=== PATIENT | male | born 1955 | race Caucasian/White ===

== ENCOUNTER → 2018-04-29 | Outpatient (CLI) | payer OTHER ==
[2018-04-29 14:26] LABS: ADD MAN DIFF? NO
[2018-04-29 14:34] LABS: BASO # 0.1 x10^3/uL (0.0-0.2); BASO % 1 % (0-3); EOS # 0.3 x10^3/uL (0.0-0.7); EOS % 2 % (0-3); HEMATOCRIT 45.6 % (39.0-53.0); HEMOGLOBIN 15.6 g/dL (13.0-17.5); LYMPH # 1.8 x10^3/uL (1.0-4.8); LYMPH % 15 % (24-48); MEAN CORPUSCULAR HEMOGLOBIN 30 pg (25-35); MEAN CORPUSCULAR HGB CONC 34 g/dL (31-37); MEAN CORPUSCULAR VOLUME 89 fL (79-100); MONO # 1.5 x10^3/uL (0.0-1.1); MONO % 12 % (0-9); NEUT # 8.7 x10^3uL (1.8-7.7); NEUT % 70 % (31-73); PLATELET COUNT 390 x10^3/uL (140-400); RED BLOOD COUNT 5.15 x10^6/uL (4.30-5.70); RED CELL DISTRIBUTION WIDTH 13.4 % (11.5-14.5); WHITE BLOOD COUNT 12.4 x10^3/uL (4.0-11.0)
[2018-04-29 14:42] LABS: PARTIAL THROMBOPLASTIN TIME 33 SEC (24-38); PROTHROMBIN TIME PATIENT 13.1 SEC (11.7-14.0)
[2018-04-29 14:46] LABS: ALBUMIN 3.9 g/dL (3.4-5.0); ANION GAP 9 (6-14); BLOOD UREA NITROGEN 13 mg/dL (8-26); CALCIUM 9.6 mg/dL (8.5-10.1); CARBON DIOXIDE 27 mmol/L (21-32); CHLORIDE 101 mmol/L (98-107); CREATININE 0.9 mg/dL (0.7-1.3); GLUCOSE 90 mg/dL (70-99); POTASSIUM 3.5 mmol/L (3.5-5.1); SODIUM 137 mmol/L (136-145)
[2018-04-29 15:00] LABS: BILIRUBIN,URINE NEGATIVE (NEG); CLARITY,URINE CLEAR; COLOR,URINE YELLOW; GLUCOSE,URINE NEGATIVE (NEG); NITRITE,URINE NEGATIVE (NEG); PROTEIN,URINE NEGATIVE (NEG-TRACE); UROBILINOGEN,URINE 0.2 mg/dL (0.2 mg/dL)
[2018-04-29 15:07] LABS: BACTERIA,URINE 0 /HPF (0-FEW); RBC,URINE 0 /HPF (0-2); SQUAMOUS EPITHELIAL CELL,UR OCC /LPF
[2018-04-29 15:26] LABS: PLT ESTIMATE ADEQUATE (ADEQUATE)
[2018-04-29 16:01] LABS: SEDIMENTATION RATE 44 (0-15)
[2018-04-30 06:23] LABS: MRSA BY PCR Negative (Negative)
== END | disposition home or self-care (01) ==
LOC: SURGPAT 13:03
DX: Z01.818 Encounter for other preprocedural examination (principal)
CPT/HCPCS: 36415; 71046; 80048; 81001; 82040; 85025; 85610; 85651; 85730; 87086; 87641; 93005

== ENCOUNTER 2018-05-06 11:23 | Inpatient (IN) | payer OTHER ==
[~2018-05-06 11:23] MED LIST: LIDOCAINE 1% PF 2 ML VIAL. ID; MORPHINE SULFATE 2 MG/ML DISP.SYRIN. IV; ONDANSETRON PF 4 MG/2 ML VIAL. IV; PROCHLORPERAZINE 10 MG/2 ML VIAL. IV; TRANEXAMIC ACID 1,000 MG in IV NS 50ML -- 2ND BAG INJ; fentaNYL PF VIAL 100 MCG/2 ML VIAL IV
[2018-05-06] MEDS ORDERED: ONDANSETRON PF 4 MG/2 ML VIAL. (12:24)
[2018-05-06] MEDS ORDERED: LIDOCAINE 2% PF Vial for OR 5 ML VIAL. (12:24)
[2018-05-06] MEDS ORDERED: PROPOFOL 20 ML IV (12:24)
[2018-05-06] MEDS ORDERED: DEXAMETHASONE SOD PHOS 20 MG/5 ML VIAL. (12:24)
[2018-05-06] MEDS ORDERED: FAMOTIDINE 20 MG/2 ML VIAL (12:24)
[2018-05-06] MEDS ORDERED: ROCURONIUM 50 MG/5 ML VIAL. (12:25)
[2018-05-06] MEDS ORDERED: fentaNYL PF VIAL 100 MCG/2 ML VIAL ×2 (12:25→13:33)
[2018-05-06] MEDS ORDERED: MIDAZOLAM HCL/PF 2 MG/2 ML VIAL. (12:25)
[2018-05-06] MEDS: IV RINGERS,LACTATED 1000ML 1,000 ML IV (12:41)
[2018-05-06 12:46] LABS: PARTIAL THROMBOPLASTIN TIME 31 SEC (24-38)
[2018-05-06] MEDS: CELECOXIB 100 MG CAPSULE. PO (12:46)
[2018-05-06] MEDS: HYDROcodone/APAP 7.5/325MG 1 TAB TABLET PO (12:47)
[2018-05-06] MEDS: CLINDAMYCIN 900MG PREMIX 50 ML IV ×2 (13:02→18:40)
[2018-05-06] MEDS: TRANEXAMIC ACID 1,000 MG in IV NS 50ML -- 1ST BAG INJ (13:08)
[2018-05-06] MEDS: MORPHINE SULFATE 5 MG, KETOROLAC 30 MG, ROPIVacaine 0.5% PF 60 ML, EPINEPHrine 0.5 MG i... INT ART (13:28)
[2018-05-06] MEDS ORDERED: ePHEDrine PF IN SALINE 50 MG/5 ML DISP.SYRIN IV (14:04)
[2018-05-06] MEDS ORDERED: NEOSTIGMINE METHYLSULFATE 5 MG/5 ML SYRINGE. (14:26)
[2018-05-06] MEDS ORDERED: GLYCOPYRROLATE 1 MG/5 ML VIAL. (14:30)
[2018-05-06] MEDS: IV DEXTROSE 5 %-0.45 % NACL 1,000 ML IV ×2 (16:06→20:04)
[2018-05-06] MEDS ORDERED: ZOLPIDEM 5 MG TABLET. PO (16:15)
[2018-05-06] MEDS ORDERED: DEXTROSE 50% 25 GM / 50ML DISP.SYRIN. IV (16:15)
[2018-05-06] MEDS ORDERED: MORPHINE SULFATE 2 MG/ML DISP.SYRIN. IV (16:15)
[2018-05-06] MEDS ORDERED: HYDROcodone/APAP 7.5/325MG 1 TAB TABLET PO (16:15)
[2018-05-06] MEDS ORDERED: diphenhydrAMINE 50 MG/ML VIAL IV (16:15)
[2018-05-06] MEDS ORDERED: fentaNYL PF VIAL 100 MCG/2 ML VIAL IV ×2 (16:15)
[2018-05-06] MEDS ORDERED: oxyCODONE/APAP 7.5/325 1 TAB TABLET PO (16:15)
[2018-05-06] MEDS ORDERED: ACETAMINOPHEN 325 MG TABLET. PO (16:15)
[2018-05-06] MEDS ORDERED: PROCHLORPERAZINE 10 MG/2 ML VIAL. IV (16:15)
[2018-05-06] MEDS ORDERED: traMADol 50 MG TABLET PO ×2 (16:15)
[2018-05-06] MEDS ORDERED: HYDROcodone/APAP 10/325 1 TAB TABLET PO (16:15)
[2018-05-06] MEDS ORDERED: CALCIUM CARBONATE 500 MG TAB.CHEW PO (16:15)
[2018-05-06] MEDS ORDERED: 0.9 % SODIUM CHLORIDE 10 ML DISP.SYRIN. IV (16:15)
[2018-05-06] MEDS ORDERED: oxyCODONE/APAP 5/325 1 TAB TABLET PO (16:15)
[2018-05-06] MEDS: FERROUS SULFATE 325 MG TABLET. PO (18:39)
[2018-05-06] MEDS: APIXABAN 2.5 MG TABLET. PO (21:47)
[2018-05-06] MEDS: SIMVASTATIN 40 MG TABLET. PO (21:47)
[2018-05-07] MEDS: CLINDAMYCIN 900MG PREMIX 50 ML IV ×2 (00:35→06:30)
[2018-05-07] MEDS ORDERED: MAGNESIUM HYDROXIDE 2,400 MG/30 ML ORAL.SUSP. PO (06:00)
[2018-05-07] MEDS: hydroCHLOROthiazide 12.5 MG CAPSULE PO (06:54)
[2018-05-07] MEDS: LISINOPRIL 20 MG TABLET PO (06:54)
[2018-05-07] MEDS: FERROUS SULFATE 325 MG TABLET. PO (08:25)
[2018-05-07] MEDS: CELECOXIB 100 MG CAPSULE. PO (08:25)
[2018-05-07] MEDS: SENNOSIDES/DOCUSATE 8.6/50MG TABLET. PO (08:25)
[2018-05-07] MEDS: MULTIVITAMIN with MINERAL TABLET. PO (08:25)
[2018-05-07] MEDS: APIXABAN 2.5 MG TABLET. PO (08:25)
[2018-05-07 10:31] LABS: HEMATOCRIT 42.2 % (39.0-53.0); HEMOGLOBIN 14.4 g/dL (13.0-17.5); MEAN CORPUSCULAR HGB CONC 34 g/dL (31-37)
[2018-05-07] MEDS ORDERED: ANTI-COAG MONITOR BY PHARMACY. MC ×2 (12:00→13:45)
[2018-05-07] MEDS ORDERED: BISACODYL 10 MG SUPP.RECT. PR (16:00)
== END 2018-05-07 14:15 | disposition home or self-care (01) | DRG 468 ==
LOC: OPSVCIP 11:23 → 4 SOUTHEST 15:35
PROC: 0SRS03Z Replacement of Left Hip Joint, Femoral Surface with Ceramic Synthetic Substitute, Open Approach (ICD-10-PCS; principal; 2018-05-06 12:53)
PROC: 0SPB09Z Removal of Liner from Left Hip Joint, Open Approach (ICD-10-PCS; 2018-05-06 12:53)
PROC: 0SUE09Z Supplement Left Hip Joint, Acetabular Surface with Liner, Open Approach (ICD-10-PCS; 2018-05-06 12:53)
PROC: 0SPS0JZ Removal of Synthetic Substitute from Left Hip Joint, Femoral Surface, Open Approach (ICD-10-PCS; 2018-05-06 12:53)
DX: T84.061A Wear of articular bearing surface of internal prosthetic left hip joint, initial encounter (principal); Y83.8 Other surgical procedures as the cause of abnormal reaction of the patient, or of later complication, without mention of misadventure at the time of the procedure; Y92.89 Other specified places as the place of occurrence of the external cause; T84.021A Dislocation of internal left hip prosthesis, initial encounter
CPT/HCPCS: 36415; 85014; 85018; 85610; 85730; 86850; 86900; 86901; 87071; 87075; 88112; 97116-GP; 97150-GP; 97165-GO; 97530-GP; A7015; J0171; J1100; J1885; J2001; J2250; J2270; J2405; J2704; J2710; J2795; J3010; J3490; J7030; J7120; S0028

== ENCOUNTER 2019-04-14 10:15 | Emergency (ER) | payer OTHER, MEDICARE ==
[~2019-04-14] VITALS: Ht 188 cm; Wt 90.7 kg
[~2019-04-14 10:15] MED LIST changes: -LIDOCAINE 1% PF 2 ML VIAL. ID; +LISI1TAB5 PO; -MORPHINE SULFATE 2 MG/ML DISP.SYRIN. IV; -ONDANSETRON PF 4 MG/2 ML VIAL. IV; -PROCHLORPERAZINE 10 MG/2 ML VIAL. IV; +SIMV40TA3 PO; -TRANEXAMIC ACID 1,000 MG in IV NS 50ML -- 2ND BAG INJ; -fentaNYL PF VIAL 100 MCG/2 ML VIAL IV
--- NOTE | 2019-04-14 10:39 | PHYS DOC ---
Past Medical History Past Medical History: High Cholesterol, Hypertension Past Surgical History: Hip Replacement Alcohol Use: None Adult General Chief Complaint Chief Complaint: HIP PAIN HPI HPI Patient is a 63-year-old male who presents to the emergency department for evaluation. Patient states he was on a roof, cleaning gutters, when he twisted his left leg wrong, and felt his left hip dislocated. He has a history of a prior left total hip arthroplasty, as well as a revision to the surgery with hardware about 3 years. He did not improve, or suffer any other traumatic injury. He denies any numbness or weakness. He received 100 g By EMS. Movement and palpation of his left hip to worsen his pain. There are no alleviating factors to his symptoms otherwise. Review of Systems Review of Systems Respiratory: Denies cough or shortness of breath [] GI: Denies abdominal pain, nausea, vomiting, bloody stools or diarrhea [] Musculoskeletal: Denies back pain or joint pain, except in the left hip [] Integument: Denies rash or skin lesions [] Neurologic: Denies headache, focal weakness or sensory changes [] Current Medications Current Medications Current Medications Medications (Trade) Dose Ordered Sig/Micah Start Time Stop Time Status Last Admin Dose Admin Fentanyl Citrate (Fentanyl 2ml Vial) 50 mcg 1X ONCE 04/14/19 10:45 04/14/19 10:46 DC 04/14/19 10:40 50 MCG Midazolam HCl (Versed) 2 mg 1X ONCE 04/14/19 11:45 04/14/19 11:48 DC 04/14/19 11:45 2 MG Propofol (Diprivan) 100 mg 1X ONCE 04/14/19 11:45 04/14/19 11:48 DC 04/14/19 11:46 100 MG Sodium Chloride 1,000 ml @ 1,000 mls/hr 1X ONCE 04/14/19 10:45 04/14/19 11:44 DC 04/14/19 10:40 1,000 MLS/HR Allergies Allergies Allergies Coded Allergies Type Severity Reaction Last Updated Verified Penicillins Adverse Reaction Intermediate Palpitations 05/06/18 Yes Physical Exam Physical Exam PHYSICAL EXAM: CONSTITUTIONAL: Well developed, well nourished HEAD: normocephalic, atraumatic EENT: PERRL, EOMI. Conjunctivae normal color, sclerae non-icteric; moist mucous membranes. NECK: Supple, non-tender; no meningismus. LUNGS: Lungs CTA, breathing even and unlabored. Normal air movement. HEART: Regular rate and rhythm, no murmur CHEST: No deformity; non-tender ABDOMEN: The abdomen is soft, and non-tender, no masses or bruits. EXTREM: The patient is holding the left hip and knee flexed, and is laying on his right side. There is tenderness to palpation of his left hip area, with a well-healed incision present. Any movement of the left hip is painful to the patient. There is a strong distal dorsalis pedis pulse, as well as distal sensation and motor function on the left leg are intact. The remainder the extremities are unremarkable, with Normal ROM; no deformity, no calf tenderness. Normal pulses palpable in all extremities. There is no pedal edema. SKIN: No rash; no diaphoresis NEURO: Alert; normal speech and cognition; CN's grossly intact; strength grossly intact without focal deficit. BACK: No CVA TTP. Current Patient Data Vital Signs Vital Signs Date Time Temp Pulse Resp B/P (MAP) Pulse Ox O2 Delivery O2 Flow Rate FiO2 04/14/19 11:45 62 16 105/55 (72) 96 Room Air 04/14/19 11:35 2.0 04/14/19 11:10 97.4 96.6 96.6 EKG EKG [] Radiology/Procedures Radiology/Procedures [PROCEDURE: HIP LEFT 2 VIEW 2 view left hip study Clinical indications: Left hip pain. Suspected dislocation. FINDINGS: Total left hip arthroplasty is evident. There is superior lateral dislocation of the femoral head prosthesis out of the acetabular prosthesis. No acute fracture or lytic process evident. IMPRESSION: Dislocation of left hip prosthesis. ] PROCEDURE: HIP LEFT 2 VIEW Examination: 2 views of the left hip HISTORY: History of postreduction. COMPARISON: 04/14/2019. Findings/ impression: Postreduction changes of the left hip prosthesis with the left hip total arthroplasty changes in normal alignment. Course & Med Decision Making Course & Med Decision Making Pertinent Imaging studies reviewed. (See chart for details) [] PROCEDURE NOTE: Closed hip reduction with moderate sedation: informed consent was obtained from the patient, and appropriate monitoring time and she refused. The patient was given initially 1 mg of Versed and 70 mg of propofol, but the patient did have some persistent muscle spasming, which made reduction on the initial attempt difficult. He was subsequently given an additional 30 mg of propofol, and another 1 mg of Versed, with appropriate relaxation, which facilitated successful reduction of the patient's hip dislocation clinically. An x-ray will be obtained. PMS intact post reduction. The patient did experience some airway obstruction by his tongue, requiring brief your thrust, but did not have hypoxia below 88%. End-tidal CO2 was monitored, and did not rise. The patient has recovered successfully, and will continue to be monitored in the emergency department. 11:25 AM: I have paged the patient's orthopedist, to discuss the case with the patient's physician. 12:40 PM: The patient's condition remained stable. He has recovered from his sedation unremarkably. He is able to ambulate without significant difficulty, and only mild residual soreness. Discussed with Dr. Molina,, on-call for the patient's orthopedist, who agreed with management of the patient. I discussed limiting patient the patient, the need for orthopedic follow-up and return precautions. Dragon Disclaimer Dragon Disclaimer This electronic medical record was generated, in whole or in part, using a voice recognition dictation system. Departure Departure Impression: Primary Impression: Hip dislocation, left Disposition: HOME, SELF-CARE Condition: STABLE Referrals: NIKOS NIXON Jr, MD (PCP) NERY MONTEIRO MD Patient Instructions: Hip Dislocation ARA DIGGS MD Apr 14, 2019 10:39
[2019-04-14] MEDS ORDERED: PROPOFOL 20 ML IV ONE (10:42)
[2019-04-14] MEDS ORDERED: ETOMIDATE 20 MG/10 ML VIAL. IV ONE (10:42)
[2019-04-14] MEDS ORDERED: MIDAZOLAM HCL/PF 5 MG/5 ML VIAL. ONE (10:43)
[2019-04-14] MEDS ORDERED: IV NORMAL SALINE 1000ML BAG 1,000 ML IV ONE (10:45)
[2019-04-14] MEDS ORDERED: fentaNYL PF VIAL 100 MCG/2 ML VIAL IV ONE (10:45)
--- NOTE | 2019-04-14 11:04 | RAD ---
2 view left hip study Clinical indications: Left hip pain. Suspected dislocation. FINDINGS: Total left hip arthroplasty is evident. There is superior lateral dislocation of the femoral head prosthesis out of the acetabular prosthesis. No acute fracture or lytic process evident. IMPRESSION: Dislocation of left hip prosthesis. Electronically signed by: Tru Chaves MD (04/14/2019 11:01 AM) [id number]
[2019-04-14 11:10] VITALS: BP 130/70
[2019-04-14] MEDS ORDERED: PROPOFOL 10 MG/ML (20ML) VIAL. IV ONE (11:45)
[2019-04-14] MEDS ORDERED: MIDAZOLAM HCL/PF 5 MG/5 ML VIAL. IV ONE (11:45)
--- NOTE | 2019-04-14 12:00 | RAD ---
Examination: 2 views of the left hip HISTORY: History of postreduction. COMPARISON: 04/14/2019. Findings/ impression: Postreduction changes of the left hip prosthesis with the left hip total arthroplasty changes in normal alignment. Electronically signed by: Eusebio Zaman MD (04/14/2019 11:57 AM) [place] [id number]
[2019-04-14 12:54] VITALS: BP 133/71
== END 2019-04-14 12:53 | disposition home or self-care (01) ==
LOC: ER 10:15
DX: T84.021A Dislocation of internal left hip prosthesis, initial encounter (principal); E78.00 Pure hypercholesterolemia, unspecified; I10 Essential (primary) hypertension; Z96.642 Presence of left artificial hip joint; Z88.0 Allergy status to penicillin; W18.39XA Other fall on same level, initial encounter; Y93.H9 Activity, other involving exterior property and land maintenance, building and construction; Y92.89 Other specified places as the place of occurrence of the external cause; Y99.8 Other external cause status
CPT/HCPCS: 27265; 73502; 96374; 99285; J2250; J2704; J3010; J7030; 99284

== ENCOUNTER → 2020-02-09 | Day surgery (SDC) | payer MEDICARE ==
[~2020-02-09] VITALS: Ht 188 cm; Wt 113.6 kg
[~2020-02-09] MED LIST changes: +HYDROmorphone 2 MG/ML VIAL IV ONE; +HYDROmorphone 2 MG/ML VIAL IV PRN; +HYDROmorphone 2 MG/ML VIAL ONE; +IV RINGERS,LACTATED 1000ML 1,000 ML IV ONE; +IV RINGERS,LACTATED 1000ML 1,000 ML IV SCH; +KETOROLAC 30 MG/ML VIAL. ONE; +LISI1TAB19 PO; -LISI1TAB5 PO; +MORPHINE SULFATE 2 MG/ML VIAL. IV PRN; +ONDANSETRON PF 4 MG/2 ML VIAL. IV PRN; +ONDANSETRON PF 4 MG/2 ML VIAL. IVP ONE; +PROCHLORPERAZINE 10 MG/2 ML VIAL. IV PRN; +PROPOFOL 20 ML IV ONE; +SIMV40TA18 PO; -SIMV40TA3 PO; +SUCCINYLCHOLINE 200 MG/10 ML VIAL. ONE; +fentaNYL PF VIAL 100 MCG/2 ML VIAL IV PRN
--- NOTE | 2020-02-09 13:18 | PHYS DOC ---
Past Medical History Past Medical History: High Cholesterol, Hypertension Past Surgical History: Hip Replacement Additional Past Surgical Histo: LEFT HIP REPLACEMENT Smoking Status: Current Every Day Smoker Alcohol Use: None Drug Use: None Adult General Chief Complaint Chief Complaint: HIP PAIN HPI HPI Patient is a 64 year old male presenting to the ED with a chief complaint of left hip dislocation. Patient states that he was out in his yard when he felt his left hip dislocated. Patient states that he has a hip replacement in his left hip. His orthopedic surgeon is Dr. Soni. Patient states that this is happened in the past. Patient denies any other injury. Patient does state that he is an active smoker. Review of Systems Review of Systems Patient complains of pain to his left hip. Patient denies fever, chills, nausea, vomiting, diarrhea, dysuria, chest pain, abdominal pain, shortness of breath. All other systems were reviewed and found to be within normal limits, except as documented in this note. Current Medications Current Medications Current Medications Medications (Trade) Dose Ordered Sig/Micah Start Time Stop Time Status Last Admin Dose Admin Fentanyl Citrate (Fentanyl 2ml Vial) 50 mcg PRN Q5MIN PRN 02/09/20 14:45 02/10/20 14:44 Hydromorphone HCl (Dilaudid) 0.5 mg PRN Q10MIN PRN 02/09/20 14:45 02/10/20 14:44 Ketorolac Tromethamine (Toradol 30mg Vial) 30 mg STK-MED ONCE 02/09/20 15:14 02/09/20 15:15 DC Lorazepam (Ativan Inj) 1 mg 1X ONCE 02/09/20 13:15 02/09/20 13:17 DC 02/09/20 13:28 1 MG Morphine Sulfate (Morphine Sulfate) 1 mg PRN Q10MIN PRN 02/09/20 14:45 02/10/20 14:44 Ondansetron HCl (Zofran) 4 mg PRN Q6HRS PRN 02/09/20 14:45 02/10/20 14:44 Prochlorperazine Edisylate (Compazine) 5 mg PACU PRN PRN 02/09/20 14:45 02/10/20 14:44 Propofol 20 ml @ As Directed STK-MED ONCE 02/09/20 14:57 02/09/20 14:58 DC Ringer's Solution 1,000 ml @ 30 mls/hr Q24H 02/09/20 14:37 02/10/20 02:36 DC Allergies Allergies Allergies Coded Allergies Type Severity Reaction Last Updated Verified Penicillins Adverse Reaction Intermediate Palpitations 05/06/18 Yes Physical Exam Physical Exam Constitutional: Well developed, well nourished, in mild distress HENT: Normocephalic, atraumatic Eyes: PERRLA, EOMI Neck: Normal range of motion Cardiovascular:Heart rate regular rhythm, no murmur [] Lungs & Thorax: Lungs clear to auscultation bilaterally Extremities: Obvious deformity to the left hip. Neurovascular intact distally. Neurologic: Alert and oriented X 3 Current Patient Data Vital Signs Vital Signs Date Time Temp Pulse Resp B/P (MAP) Pulse Ox O2 Delivery O2 Flow Rate FiO2 02/09/20 15:10 72 20 167/56 97 Nasal Cannula 4.0 02/09/20 15:10 97.4 97.4 Lab Values Laboratory Tests Test 02/09/20 13:10 White Blood Count 9.6 x10^3/uL (4.0-11.0) Red Blood Count 5.12 x10^6/uL (4.30-5.70) Hemoglobin 15.0 g/dL (13.0-17.5) Hematocrit 45.1 % (39.0-53.0) Mean Corpuscular Volume 88 fL (79-100) Mean Corpuscular Hemoglobin 29 pg (25-35) Mean Corpuscular Hemoglobin Concent 33 g/dL (31-37) Red Cell Distribution Width 13.5 % (11.5-14.5) Platelet Count 262 x10^3/uL (140-400) Neutrophils (%) (Auto) 63 % (31-73) Lymphocytes (%) (Auto) 21 % (24-48) L Monocytes (%) (Auto) 12 % (0-9) H Eosinophils (%) (Auto) 2 % (0-3) Basophils (%) (Auto) 1 % (0-3) Neutrophils # (Auto) 6.0 x10^3/uL (1.8-7.7) Lymphocytes # (Auto) 2.1 x10^3/uL (1.0-4.8) Monocytes # (Auto) 1.2 x10^3/uL (0.0-1.1) H Eosinophils # (Auto) 0.2 x10^3/uL (0.0-0.7) Basophils # (Auto) 0.1 x10^3/uL (0.0-0.2) Prothrombin Time 12.9 SEC (11.7-14.0) Prothrombin Time INR 1.0 (0.8-1.1) Sodium Level 137 mmol/L (136-145) Potassium Level 3.6 mmol/L (3.5-5.1) Chloride Level 101 mmol/L (98-107) Carbon Dioxide Level 23 mmol/L (21-32) Anion Gap 13 (6-14) Blood Urea Nitrogen 14 mg/dL (8-26) Creatinine 1.2 mg/dL (0.7-1.3) Estimated GFR (Cockcroft-Gault) 60.6 BUN/Creatinine Ratio 12 (6-20) Glucose Level 117 mg/dL (70-99) H Calcium Level 9.3 mg/dL (8.5-10.1) Total Bilirubin 0.4 mg/dL (0.2-1.0) Aspartate Amino Transferase (AST) 20 U/L (15-37) Alanine Aminotransferase (ALT) 26 U/L (16-63) Alkaline Phosphatase 46 U/L (46-116) Total Protein 7.5 g/dL (6.4-8.2) Albumin 3.7 g/dL (3.4-5.0) Albumin/Globulin Ratio 1.0 (1.0-1.7) Laboratory Tests 02/09/20 13:10 Laboratory Tests 02/09/20 13:10 EKG EKG [] Radiology/Procedures Radiology/Procedures [] Course & Med Decision Making Course & Med Decision Making Pertinent Labs and Imaging studies reviewed. (See chart for details) Ordered x-ray of the left hip. Ordered pain medication, nausea medicine and Ativan 1 mg IV. X-ray of the left hip shows a superior dislocation. Patient was given 50mg propofol. Unable to reduce the dislocation. Discussed case with Dr. Senior who says that he will take the patient to the OR for closed reduction. Discussed results and plan of care with patient. Dragon Disclaimer Dragon Disclaimer This electronic medical record was generated, in whole or in part, using a voice recognition dictation system. Departure Departure Impression: Primary Impression: Hip dislocation, left Disposition: 01 HOME, SELF-CARE Condition: IMPROVED Referrals: NIKOS NIXON Jr, MD (PCP) NERY SONI MD in 1-2 days Patient Instructions: Closed Reduction for Artificial Hip Dislocation, Hip Dislocation JOSEFA HARVEY DO Feb 09, 2020 13:17
[2020-02-09 13:25] LABS: BASO # 0.1 x10^3/uL (0.0-0.2); BASO % 1 % (0-3); EOS # 0.2 x10^3/uL (0.0-0.7); EOS % 2 % (0-3); HEMATOCRIT 45.1 % (39.0-53.0); LYMPH # 2.1 x10^3/uL (1.0-4.8); LYMPH % 21 % (24-48); MEAN CORPUSCULAR HEMOGLOBIN 29 pg (25-35); MEAN CORPUSCULAR HGB CONC 33 g/dL (31-37); MEAN CORPUSCULAR VOLUME 88 fL (79-100); MONO # 1.2 x10^3/uL (0.0-1.1); MONO % 12 % (0-9); NEUT % 63 % (31-73); PLATELET COUNT 262 x10^3/uL (140-400); RED BLOOD COUNT 5.12 x10^6/uL (4.30-5.70); RED CELL DISTRIBUTION WIDTH 13.5 % (11.5-14.5); WHITE BLOOD COUNT 9.6 x10^3/uL (4.0-11.0)
--- NOTE | 2020-02-09 13:34 | RAD ---
2 view study of the left hip Clinical indications: Dislocation. FINDINGS: There is superior lateral dislocation of the left femoral head prosthesis out of the acetabular prosthesis. No acute fracture is seen. No lytic process is evident. IMPRESSION: Dislocation of left hip prosthesis. Electronically signed by: Tru Chaves MD (02/09/2020 1:31 PM) [id number]
[2020-02-09 13:35] LABS: CALCIUM 9.3 mg/dL (8.5-10.1); CREATININE 1.2 mg/dL (0.7-1.3); GFR 60.6; POTASSIUM 3.6 mmol/L (3.5-5.1)
[2020-02-09 13:38] LABS: PROTHROMBIN TIME PATIENT 12.9 SEC (11.7-14.0)
[2020-02-09 13:40] LABS: ALBUMIN 3.7 g/dL (3.4-5.0); TOTAL BILIRUBIN 0.4 mg/dL (0.2-1.0); TOTAL PROTEIN 7.5 g/dL (6.4-8.2)
[2020-02-09 13:54] VITALS: BP 125/63
--- NOTE | 2020-02-09 15:15 | NUR ---
1515-DR MONTEIRO AT BEDSIDE. PROCEDURE START AT 1517. DR MONETIRO RELOCATED PT'S HIP DISLOCATION UNDER MAC ANESTHESIA. PROCEDURE ENDED AT 1531.
--- NOTE | 2020-02-09 16:11 | RAD ---
Left hip single view COMPARISON: Earlier same day left hip x-rays FINDINGS: AP portable view of the left hip shows interval reduction of the left hip dislocation status post total hip arthroplasty. No fracture or aggressive osseous lesions. IMPRESSION: Single view of the left hip suggests interval successful reduction of the left hip dislocation evident previously. Electronically signed by: Saran Nam MD (02/09/2020 4:08 PM) [id number]
[2020-02-09 16:20] VITALS: BP 106/29
--- NOTE | 2020-02-09 16:31 | DISCH ---
DISCHARGE INSTRUCTIONS Condition on Discharge Condition on Discharge: Stable Activity After Discharge Activity Instructions for Disc: Activity as tolerated, Other, see below (use knee immobilizer for transfers sitting to standing or getting in and out of bed until follow-up in 3 weeks) Bathing Instructions: Shower-keep dressing dry Lifting Instructions after Dis: No heavy lifting, No pulling or pushing, Add. restrict see below (avoid bending at the waist beyond 90) Exercise Instruction after Dis: Progress as tolerated Driving Instructions after Dis: Do not drive Weight Bearing Status after Di: As tolerated (use knee immobilizer for walking in the first week) Diet after Discharge Diet after Discharge: Regular Wound Incision Care Wound/Incision Care: Ice to area for comfort Contacting the DRDanie after DC Call your doctor for: Concerns you may have Follow-Up Follow up with: Dr. Soni 3 weeks NERY SONI MD Feb 09, 2020 16:31
--- NOTE | 2020-02-09 17:35 | PDOC4 ---
Operative Note Operative Note Date of surgery: 02/09/2020 Preoperative diagnosis: Dislocated left total hip arthroplasty Postoperative diagnosis: Same Operative procedure: Closed reduction left total hip arthroplasty dislocation Surgeon: Nae Anesthesia: Deep sedation provided by anesthesia Complications: None Estimated blood loss: None Operative indications: Please see my dictated orthopedic emergency Department consultation of today for detail operative indications Operative text: Patient was identified procedure verified patient placed in the supine position on the recovery room cart and conscious sedation was initially provided by anesthesia with propofol and due to the difficulty of the reduction added some muscle relaxant as well and after sufficient traction countertraction was obtained the left hip was relocated and verified with a adequate reduction with an AP view of the pelvis and the hip components were noted to remain well fixed and aligned. He was placed in a knee immobilizer and was discharged after satisfactory recovery and ability to ambulate on his own and was given specific instructions on his hip precautions use of the knee immobilizer NERY MONTEIRO MD Feb 09, 2020 17:35
--- NOTE | 2020-02-09 22:15 | CONS ---
DATE OF CONSULTATION: 02/09/2020 EMERGENCY DEPARTMENT CONSULTATION REQUESTING PHYSICIAN: Kathy Arguelles DO. REASON FOR CONSULTATION: Left hip dislocation. HISTORY: The patient is a 64-year-old male known to me from previous treatment of left hip instability. He had remotely had a left total hip arthroplasty done by Dr. Headley and has undergone a few different closed reduction procedures in the past. He was out in his yard today and felt his left hip dislocate as he bent over. He denied any fall or loss of consciousness or other injury but had the sudden onset of pain, inability to ambulate and was evaluated in the Emergency Department and failed closed reduction under conscious sedation. PAST MEDICAL HISTORY: Significant for hypertension and hypercholesterolemia. PAST SURGICAL HISTORY: Left total hip arthroplasty. SOCIAL HISTORY: Denies alcohol or drug use. He does smoke every day, however. FAMILY HISTORY: Noncontributory. ALLERGIES: HE HAS AN ALLERGY TO PENICILLINS WHICH WAS APPARENTLY PALPITATIONS. MEDICATION LIST: Reviewed. REVIEW OF SYSTEMS: Denies any chest pain, shortness of breath, recent fever, chills, nausea, vomiting or other constitutional symptoms. PHYSICAL EXAMINATION: VITAL SIGNS: Temperature 97.4, pulse 70, respirations 13-16 range, blood pressure 125/63, 98% saturation on room air. HEENT: Atraumatic, normocephalic. HEART: Regular rate and rhythm. LUNGS: Clear to auscultation bilaterally. ABDOMEN: Benign. EXTREMITIES: Examination of the left hip reveals shortened internally rotated left hip, painful to any motion, and he has significant muscle spasm around the hip girdle area. He has a well-healed incision from previous total hip arthroplasty on the left side. Normal examination of bilateral knees and ankles and of the contralateral right hip. IMAGING: X-rays show superior lateral dislocation of the left hip with otherwise well-fixed components. IMPRESSION: Left total hip dislocation. TREATMENT PLAN: I had gone over with him the treatment plan of a planned closed reduction. He is going to be brought in to the recovery room to have anesthesia administered. Conscious sedation is required since he failed attempted closed reduction under conscious sedation in the Emergency Department. We covered the unlikely possibility of open reduction, possibility of continued dislocations as he had had this issue in the past. We had talked about the undesirability of operative treatment, particularly under this scenario of the COVID pandemic with him and with the anesthesia providers the rationale for sedation. He agrees to proceed having given informed consent and will proceed urgently with a planned discharge home after his procedure. NERY MONTEIRO MD DR: SAMIRA/keya JOB#: [id number] / [id number]
== END | disposition home or self-care (01) ==
LOC: ER 13:00 → SDC 15:15
PROVIDERS: ATTEND Orthopaedic Surgery
DX: S73.005A Unspecified dislocation of left hip, initial encounter (principal); I10 Essential (primary) hypertension; E78.00 Pure hypercholesterolemia, unspecified; F17.210 Nicotine dependence, cigarettes, uncomplicated; Z88.0 Allergy status to penicillin; X58.XXXA Exposure to other specified factors, initial encounter; Y93.89 Activity, other specified; Y92.89 Other specified places as the place of occurrence of the external cause; Y99.8 Other external cause status; Z96.642 Presence of left artificial hip joint
CPT/HCPCS: 27266; 36415; 73501; 73502; 80053; 85025; 85610; J0330; J1170; J1885; J2060; J2405; J2704; J7120

== ENCOUNTER 2020-04-26 14:38 | Emergency (ER) | payer MEDICARE ==
[~2020-04-26] VITALS: Ht 188 cm; Wt 120.4 kg
[~2020-04-26 14:38] MED LIST changes: -HYDROmorphone 2 MG/ML VIAL IV ONE; -HYDROmorphone 2 MG/ML VIAL IV PRN; -HYDROmorphone 2 MG/ML VIAL ONE; -IV RINGERS,LACTATED 1000ML 1,000 ML IV ONE; -IV RINGERS,LACTATED 1000ML 1,000 ML IV SCH; -KETOROLAC 30 MG/ML VIAL. ONE; -MORPHINE SULFATE 2 MG/ML VIAL. IV PRN; -ONDANSETRON PF 4 MG/2 ML VIAL. IV PRN; -ONDANSETRON PF 4 MG/2 ML VIAL. IVP ONE; -PROCHLORPERAZINE 10 MG/2 ML VIAL. IV PRN; -PROPOFOL 20 ML IV ONE; -SUCCINYLCHOLINE 200 MG/10 ML VIAL. ONE; -fentaNYL PF VIAL 100 MCG/2 ML VIAL IV PRN
[2020-04-26] MEDS ORDERED: HYDROmorphone 2 MG/ML VIAL ONE (15:05)
[2020-04-26] MEDS ORDERED: fentaNYL PF VIAL 100 MCG/2 ML VIAL IVP ONE (15:15)
[2020-04-26] MEDS ORDERED: HYDROmorphone 2 MG/ML VIAL IV ONE (15:15)
[2020-04-26] MEDS ORDERED: IV NORMAL SALINE 1000ML BAG 1,000 ML IV ONE (15:15)
[2020-04-26] MEDS ORDERED: PROPOFOL 10 MG/ML (20ML) VIAL. IV ONE ×2 (15:15→17:30)
--- NOTE | 2020-04-26 15:20 | RAD ---
Left hip single view INDICATION: Concern for dislocation. Deformity. COMPARISON: Left hip x-rays of 02/09/2020 and 02/09/2020 FINDINGS: Left total hip arthroplasty is present with dislocation of the left femoral prosthesis from the acetabulum and superior override of the femoral prosthesis relative to the acetabulum. No fracture is identified. No evidence of hardware loosening of buttressing is seen. Soft tissues are overall unremarkable. IMPRESSION: Dislocated left hip arthroplasty. FOR INTERNAL CODING PURPOSES Critical result: Findings discussed with KYLE DUNCAN at 04/26/2020 3:17 PM. RESULT CODE: (C) Electronically signed by: Saran Nam MD (04/26/2020 3:17 PM) [id number]
[2020-04-26] MEDS ORDERED: MIDAZOLAM HCL/PF 5 MG/5 ML VIAL. ONE (17:09)
[2020-04-26 17:19] VITALS: BP 134/73
[2020-04-26] MEDS ORDERED: MIDAZOLAM HCL/PF 5 MG/5 ML VIAL. IV ONE (17:30)
[2020-04-26 17:54] VITALS: BP 114/61
--- NOTE | 2020-04-26 18:01 | RAD ---
PROCEDURE: HIP LEFT 1 VIEW WITH PELVIS STUDY DATE: 04/26/2020 CLINICAL INDICATION / HISTORY: Reason: s/p reduction of hip dislocation / Spl. Instructions: / History: . TECHNIQUE:AP pelvis and AP and crosstable lateral views of the left hip were obtained COMPARISON: Left hip x-rays earlier the same day FINDINGS: Interval reduction of the dislocated prosthetic left hip in satisfactory position. No fracture. Pelvic ring appears intact with right femoral neck incompletely evaluated due to external rotation.. IMPRESSION: Satisfactory reduction of the left hip dislocation status post prior left total hip arthroplasty. No fracture. Electronically signed by: Saran Nam MD (04/26/2020 5:58 PM) [id number]
--- NOTE | 2020-04-26 18:12 | PHYS DOC ---
Past Medical History Past Medical History: Hypertension Past Surgical History: Hip Replacement Additional Past Surgical Histo: LEFT HIP REPLACEMENT Smoking Status: Current Every Day Smoker Alcohol Use: Heavy Drug Use: None General Adult EDM: Chief Complaint: HIP PAIN HPI: HPI: Patient is a 64 year old [f__sex] who presents with [] Review of Systems: Review of Systems: Constitutional: Denies fever or chills. [] Eyes: Denies change in visual acuity. [] HENT: Denies nasal congestion or sore throat. [] Respiratory: Denies cough or shortness of breath. [] Cardiovascular: Denies chest pain or edema. [] GI: Denies abdominal pain, nausea, vomiting, bloody stools or diarrhea. [] : Denies dysuria. [] Musculoskeletal: Denies back pain or joint pain. [] Integument: Denies rash. [] Neurologic: Denies headache, focal weakness or sensory changes. [] Endocrine: Denies polyuria or polydipsia. [] Lymphatic: Denies swollen glands. [] Psychiatric: Denies depression or anxiety. [] Heart Score: Risk Factors: Risk Factors: DM, Current or recent (<one month) smoker, HTN, HLP, family history of CAD, obesity. Risk Scores: Score 0 - 3: 2.5% MACE over next 6 weeks - Discharge Home Score 4 - 6: 20.3% MACE over next 6 weeks - Admit for Clinical Observation Score 7 - 10: 72.7% MACE over next 6 weeks - Early Invasive Strategies Current Medications: Current Medications Medications (Trade) Dose Ordered Sig/Micah Start Time Stop Time Status Last Admin Dose Admin Fentanyl Citrate (Fentanyl 2ml Vial) 100 mcg 1X ONCE 04/26/20 15:15 04/26/20 15:16 DC 04/26/20 16:53 100 MCG Hydromorphone HCl (Dilaudid) 2 mg STK-MED ONCE 04/26/20 15:05 04/26/20 15:05 DC Midazolam HCl (Versed) 5 mg 1X ONCE 04/26/20 17:30 04/26/20 17:34 DC 04/26/20 17:06 5 MG Propofol (Diprivan) 50 mg 1X ONCE 04/26/20 17:30 04/26/20 17:34 DC Sodium Chloride 1,000 ml @ 1,000 mls/hr 1X ONCE 04/26/20 15:15 04/26/20 16:14 DC 04/26/20 16:54 1,000 MLS/HR Allergies: Allergies: Allergies Coded Allergies Type Severity Reaction Last Updated Verified Penicillins Adverse Reaction Intermediate Palpitations 05/06/18 Yes Physical Exam: PE: Constitutional: Well developed, well nourished, no acute distress, non-toxic appearance. [] HENT: Normocephalic, atraumatic, bilateral external ears normal, oropharynx moist, no oral exudates, nose normal. [] Eyes: PERRLA, EOMI, conjunctiva normal, no discharge. [] Neck: Normal range of motion, no tenderness, supple, no stridor. [] Cardiovascular:Heart rate regular rhythm, no murmur [] Lungs & Thorax: Bilateral breath sounds clear to auscultation [] Abdomen: Bowel sounds normal, soft, no tenderness, no masses, no pulsatile masses. [] Skin: Warm, dry, no erythema, no rash. [] Back: No tenderness, no CVA tenderness. [] Extremities: No tenderness, no cyanosis, no clubbing, ROM intact, no edema. [] Neurologic: Alert and oriented X 3, normal motor function, normal sensory function, no focal deficits noted. [] Psychologic: Affect normal, judgement normal, mood normal. [] Current Patient Data: Vital Signs: Vital Signs Date Time Temp Pulse Resp B/P (MAP) Pulse Ox O2 Delivery O2 Flow Rate FiO2 04/26/20 17:29 68 118/62 (80) 98 Nasal Cannula 2.0 04/26/20 17:19 97.9 16 18 EKG: EKG: [] Radiology/Procedures: Radiology/Procedures: [] Course & Med Decision Making: Course & Med Decision Making Pertinent Labs and Imaging studies reviewed. (See chart for details) [] Dragon Disclaimer: [email or web address] Disclaimer: This electronic medical record was generated, in whole or in part, using a voice recognition dictation system. Departure Departure Impression: Primary Impression: Dislocation of hip joint prosthesis Qualified Codes: T84.029A - Dislocation of unspecified internal joint prosthesis, initial encounter; Z96.649 - Presence of unspecified artificial hip joint Disposition: HOME, SELF-CARE Condition: IMPROVED Referrals: LAURIE SHARAM MD (PCP) NERY MONTEIRO MD Patient Instructions: Closed Reduction for Artificial Hip Dislocation, Care After, Sedation, Moderate, Adult Additional Instructions: Maintain knee immobilizer at all times until cleared by your orthopedic surgeon KYLE DUNCAN DO Apr 26, 2020 18:11
== END 2020-04-26 18:21 | disposition home or self-care (01) ==
LOC: ER 14:38
DX: T84.021A Dislocation of internal left hip prosthesis, initial encounter (principal); I10 Essential (primary) hypertension; F17.200 Nicotine dependence, unspecified, uncomplicated; F10.20 Alcohol dependence, uncomplicated; Y90.9 Presence of alcohol in blood, level not specified; Z88.0 Allergy status to penicillin; Y83.8 Other surgical procedures as the cause of abnormal reaction of the patient, or of later complication, without mention of misadventure at the time of the procedure; Y92.89 Other specified places as the place of occurrence of the external cause
CPT/HCPCS: 27250; 73501; 96374; 96375; 99285; J1170; J2250; J2704; J3010; J7030; 99152

== ENCOUNTER → 2020-05-24 | Outpatient (CLI) | payer MEDICARE ==
[2020-04-26 17:54] VITALS: BP 114/61
--- NOTE | 2020-05-24 14:16 | EKG ---
[facility] [address] [place] [address] Test Date: 2020-05-24 Test Time: 14:14:01 Pat Name: ROMAN FRANZ Department: Room: Gender: M [employer]: : 1955 Requested By: NERY MONTEIRO Order Number: [id number] Reading MD: Yusef Lopez Measurements Intervals [place] Rate: 60 P: 17 OK: 168 QRS: 10 QRSD: 102 T: 34 QT: 382 QTc: 386 Interpretive Statements SINUS RHYTHM NON SPECIFIC ST-T WAVE CHANGES Electronically Signed On 05-25-2020 16:18:58 CDT by Yusef Lopez
[2020-05-24 14:48] LABS: BASO # 0.1 x10^3/uL (0.0-0.2); BASO % 1 % (0-3); EOS # 0.3 x10^3/uL (0.0-0.7); EOS % 4 % (0-3); HEMATOCRIT 44.4 % (39.0-53.0); HEMOGLOBIN 15.6 g/dL (13.0-17.5); LYMPH # 1.8 x10^3/uL (1.0-4.8); LYMPH % 20 % (24-48); MEAN CORPUSCULAR HEMOGLOBIN 31 pg (25-35); MEAN CORPUSCULAR HGB CONC 35 g/dL (31-37); MEAN CORPUSCULAR VOLUME 87 fL (79-100); MONO # 1.1 x10^3/uL (0.0-1.1); MONO % 12 % (0-9); NEUT # 5.7 x10^3/uL (1.8-7.7); NEUT % 64 % (31-73); PLATELET COUNT 234 x10^3/uL (140-400); RED BLOOD COUNT 5.12 x10^6/uL (4.30-5.70); RED CELL DISTRIBUTION WIDTH 13.4 % (11.5-14.5); WHITE BLOOD COUNT 8.9 x10^3/uL (4.0-11.0)
[2020-05-24 15:28] LABS: ALBUMIN 3.8 g/dL (3.4-5.0); C-REACTIVE PROTEIN 1.5 mg/L (0-3.3); CALCIUM 9.4 mg/dL (8.5-10.1); CREATININE 0.9 mg/dL (0.7-1.3); GFR 84.4; POTASSIUM 3.7 mmol/L (3.5-5.1)
[2020-05-24 15:29] LABS: PROTHROMBIN TIME PATIENT 12.9 SEC (11.7-14.0)
--- NOTE | 2020-05-24 16:01 | RAD ---
INDICATION: Reason: PRE OP, LEFT HIP ARTHROPLASTY SCHEDULED 06/07 / . Instructions: / History: COMPARISON: April 2018. FINDINGS: 2 view of chest obtained. No focal airspace consolidation or pulmonary edema. Cardiac silhouette is unremarkable. Degenerative changes of the spine with osteophyte formation. IMPRESSION: * No focal airspace consolidation or edema. Electronically signed by: Alexis Aguilar MD (05/24/2020 3:58 PM) [id number]
[2020-05-25 01:08] LABS: HEMOGLOBIN A1C 5.8 % (4.8-5.6)
== END | disposition home or self-care (01) ==
LOC: SURGPAT 13:25
PROVIDERS: ATTEND Orthopaedic Surgery
DX: Z01.818 Encounter for other preprocedural examination (principal); M25.352 Other instability, left hip; M25.78 Osteophyte, vertebrae; M47.814 Spondylosis without myelopathy or radiculopathy, thoracic region
CPT/HCPCS: 36415; 71046; 80048; 82040; 82306; 83036; 85025; 85610; 85730; 86140; 87641; 93005

== ENCOUNTER → 2020-06-03 | Outpatient (CLI) | payer MEDICARE | END | disposition home or self-care (01) | LOC: LAB 14:09 | PROVIDERS: ATTEND Orthopaedic Surgery | DX: Z11.59 Encounter for screening for other viral diseases (principal) | CPT/HCPCS: U0003-CS ==

== ENCOUNTER 2020-06-07 11:28 | Inpatient (IN) | payer MEDICARE ==
[~2020-06-07] VITALS: Ht 182.9 cm; Wt 117.5 kg
[2020-06-07] VITALS (7 sets, daily range): BP systolic 104–138; BP diastolic 51–77
[~2020-06-07 11:28] MED LIST changes: +HYDROmorphone 2 MG/ML VIAL IV PRN; +IV RINGERS,LACTATED 1000ML 1,000 ML IV SCH; +LIDOCAINE 1% PF 2 ML VIAL. ID PRN; +LIDOCAINE 2% PF 5 ML VIAL. ONE; -LISI1TAB19 PO; +LISI1TAB37 PO; +MORPHINE SULFATE 2 MG/ML VIAL. IV PRN; +MORPHINE SULFATE 5 MG, KETOROLAC 30MG VIAL 30 MG, ROPIVacaine 0.5% PF 60 ML, EPINEPHrin... INT ART ONE; +ONDANSETRON PF 4 MG/2 ML VIAL. IV PRN; +PROCHLORPERAZINE 10 MG/2 ML VIAL. IV PRN; +PROPOFOL 10 MG/ML (20ML) VIAL. IV ONE; +ROCURONIUM 50 MG/5 ML VIAL. ONE; +TRANEXAMIC ACID 1,000 MG in IV NORMAL SALINE 50ML 50 ML INJ ONE; +fentaNYL PF VIAL 100 MCG/2 ML VIAL IV PRN
[2020-06-07] MEDS ORDERED: fentaNYL PF VIAL 250 MCG/5 ML VIAL ONE (11:29)
[2020-06-07] MEDS ORDERED: ACETAMINOPHEN 500 MG TABLET PO ONE (12:15)
[2020-06-07] MEDS ORDERED: GABAPENTIN 300 MG CAPSULE. PO ONE (12:15)
[2020-06-07] MEDS ORDERED: MELOXICAM 7.5 MG TABLET PO ONE (12:29)
[2020-06-07] MEDS: MELOXICAM 7.5 MG TABLET PO SCH (12:33)
[2020-06-07 12:44] LABS: PROTHROMBIN TIME PATIENT 12.5 SEC (11.7-14.0)
[2020-06-07] MEDS ORDERED: DEXAMETHASONE SOD PHOS 4 MG/ML VIAL ONE (13:31)
[2020-06-07] MEDS ORDERED: ONDANSETRON PF 4 MG/2 ML VIAL. ONE (13:31)
[2020-06-07] MEDS ORDERED: ePHEDrine PF IN SALINE 50 MG/10 ML SYRINGE. IV ONE (13:31)
[2020-06-07] MEDS ORDERED: HYDROmorphone 2 MG/ML VIAL ONE (14:05)
[2020-06-07] MEDS ORDERED: NEOSTIGMINE METHYLSULFATE 5 MG/5 ML SYRINGE. ONE (14:22)
[2020-06-07] MEDS ORDERED: GLYCOPYRROLATE 1 MG/5 ML VIAL. ONE (14:22)
[2020-06-07] MEDS ORDERED: PROPOFOL 10 MG/ML (20ML) VIAL. IV ONE (14:22)
[2020-06-07 16:19] LABS: BF CLARITY TURBID; BF COLOR RED; BF MON % 95 %; BF PMN % 5 %; BF RBC COUNT 95000 /cmm (Not Established); BF SOURCE SYNOVIAL; BF WBC COUNT 2125 /cmm (Not Established)
[2020-06-07] MEDS: IV NORMAL SALINE 1000ML BAG 1,000 ML IV SCH (16:26)
[2020-06-07] MEDS ORDERED: diphenhydrAMINE 50 MG/ML VIAL IVP PRN (16:30)
[2020-06-07] MEDS ORDERED: fentaNYL PF VIAL 100 MCG/2 ML VIAL IVP PRN (16:30)
[2020-06-07] MEDS ORDERED: ZOLPIDEM 5 MG TABLET. PO PRN (16:30)
[2020-06-07] MEDS ORDERED: 0.9 % SODIUM CHLORIDE 10 ML DISP.SYRIN. IV PRN (16:30)
[2020-06-07] MEDS ORDERED: MORPHINE SULFATE 2 MG/ML VIAL. IVP PRN (16:30)
[2020-06-07] MEDS ORDERED: CALCIUM CARBONATE 500 MG TAB.CHEW PO PRN (16:30)
[2020-06-07] MEDS ORDERED: DEXTROSE 50% 25 GM / 50ML DISP.SYRIN. IV PRN (16:30)
[2020-06-07] MEDS ORDERED: MORPHINE SULFATE 2 MG/ML VIAL. ONE (17:13)
--- NOTE | 2020-06-07 17:30 | NUR ---
Arrived to unit by bed from PACU. Drowsy but awakes and falls back to sleep. VS stable. Placed O2 at 3l per n/c, was sating at 88%. Left hip dressing d/i with CAM and IAC. Pedal pulses + bilaterally and warm. MARBIN's and SCD's on bilaterally. IVF's intact and infusing. Side rails up x's 3 with call light in reach. at bedside. Cont. monitor.
[2020-06-07] MEDS: ONDANSETRON PF 4 MG/2 ML VIAL. IVP SCH ×2 (18:00→23:15)
[2020-06-07] MEDS: ONDANSETRON ODT 4 MG TAB.RAPDIS. PO SCH ×2 (18:00→23:15)
--- NOTE | 2020-06-07 18:12 | PDOC4 ---
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 Headley many years ago and required revision due to polyethylene wear. He was found to have well fixated and positioned acetabular component and underwent the revision procedure with initially excellent results. He has since had several episodes at least 5 of subsequent dislocations of the left hip. The first of which appeared to be a legitimate pushing the motion too far but subsequently seemed to have episodes that really did not result from violation of his total hip precautions as far as I can discern. He has really cut back on his desired activities as a result and we discussed at length treatment alternatives including the possibility of a constrained hip and the drawbacks of that approach if some traumatic episode would occur to dislodge the component. We talked about the possibility of a dual mobility construct to increase the range of motion and as best as available address his instability episode and maintain his activity level. We covered the possible risks of infection continued instability nerve or blood vessel damage medical or other anesthetic complications among others premature wear or loose raeann and the detailed rationale for the above. All his questions were answered he wishes to proceed with surgical evaluation and treatment Operative text: Patient was identified procedure verified patient placed in the supine position on the operating table. After adequate amounts of general anesthesia were administered he was placed in the decubitus position left side up using the Stulberg hip positioner and the left hip was prepped and draped in standard sterile fashion. After timeout was performed patient procedure identified and verified, a curvilinear incision was made over the previous posterior hip incision dissection was carried out down to the iliotibial band and gluteal fascia which were split in line with their fibers. A Charnley retractor was placed. When the joint capsule was penetrated a return of normal- appearing joint fluid was obtained and approximately 7 to 8 cc of the normal- appearing joint fluid were sent for cell count and aerobic anaerobic cultures. The hip range of motion was examined and again components appeared to be well fixated and positioned and he appeared to have about 70 degrees of internal rotation stability at 90 degrees hip flexion and his revised acetabular polyethylene was noted to be well fixated and positioned. Nevertheless with his multiple unexplained episodes of instability I proceeded with the planned revision and dislocated the hip and remove the existing modular neck and head. The acetabular polyethylene was drilled and backed out with a screw. Acetabular fixation screws were removed without difficulty and the polyethylene was re- impacted and used as a guide for the 56 mm cup cutters which were gently advanced along the entire periphery removing the well fixated acetabular component with minimal bone loss. Some areas of metallosis in the joint capsule and acetabulum were removed and reaming carried up to a size 57 which showed excellent bleeding bone throughout and a size 58 mm Biomet 4-hole [place] titanium cementless acetabular component was impacted in proper version and orientation. A single screw was placed superiorly 35 mm in length with excellent fixation and a dual mobility neutral acetabular liner was impacted into place. Trialing was then carried out and found to be most successful in congregational of leg length offset and stability with a long straight cobalt chromium modular neck with a 28 mm head compatible with the dual mobility system and therefore after trialing the 28 mm +0 ceramic head was press-fit into the dual mobility bearing surface 28 mm head size 46 mm bearing size vitamin E antioxidant infused. This was placed with a cobalt chromium long straight neck and all German taper surfaces impacted and reduced and found to have excellent stability congregational of leg length and offset and allowing full range of motion. Irrigation carried out normal saline solution hip capsule and surrounding areas were injected with intra-articular mixture. Area of capsule was reattached to the transosseously with max braid suture and capsule was closed in an interrupted fashion with max braid suture reinforced with #1 PDS strata fix. Subcutaneous closure accomplished in a layered fashion with buried Vicryl suture skin closure with selvin. Maren dressing was applied. Patient was returned to recovery room in stable condition having tolerated procedure well. Los naqvi was present for the procedure and assisted in patient positioning prepping draping retraction closure and dressings NERY MONTEIRO MD Jun 07, 2020 18:12
--- NOTE | 2020-06-07 18:17 | RAD ---
EXAM: AP pelvis, AP and lateral views of the left hip DATE: 06/07/2020 12:00 AM INDICATION: Postoperative changes left hip COMPARISON: 04/26/2020 FINDINGS/ IMPRESSION: 1. Postoperative changes of left total hip arthroplasty, in good alignment without definite hardware complication or fracture. Components are well seated without periprosthetic lucency. 2. Expected postoperative soft tissue changes including soft tissue gas and skin selvin are seen. 3. Mild right hip joint degenerative changes are partially profiled. Electronically signed by: Kostas Neal MD (06/07/2020 6:14 PM) ANNEL
[2020-06-07] MEDS ORDERED: WARFARIN 7.5 MG TABLET. PO ONE (18:30)
[2020-06-07] MEDS: SIMVASTATIN 40 MG TABLET. PO SCH (19:49)
[2020-06-07] MEDS: KETOROLAC 30MG VIAL 30 MG, BUPIVACAINE MPF 0.25% 20 ML, EPINEPHrine 0.5 MG in TOTAL VOL... INT ART SCH (19:49)
[2020-06-08 03:10] VITALS: BP 113/65
[2020-06-08] MEDS ORDERED: MAGNESIUM HYDROXIDE 2,400 MG/30 ML ORAL.SUSP. PO PRN (06:00)
[2020-06-08] MEDS: KETOROLAC 30MG VIAL 30 MG, BUPIVACAINE MPF 0.25% 20 ML, EPINEPHrine 0.5 MG in TOTAL VOL... INT ART SCH (06:23)
[2020-06-08] MEDS: traMADol 50 MG TABLET PO SCH ×4 (06:23→20:52)
[2020-06-08] MEDS: ONDANSETRON PF 4 MG/2 ML VIAL. IVP SCH ×2 (06:23→12:00)
[2020-06-08] MEDS: GABAPENTIN 100 MG CAPSULE. PO SCH ×3 (06:24→20:52)
[2020-06-08] MEDS: ONDANSETRON ODT 4 MG TAB.RAPDIS. PO SCH ×2 (06:24→12:00)
[2020-06-08 06:25] VITALS: BP 130/67
[2020-06-08 06:51] LABS: HEMOGLOBIN 13.3 g/dL (13.0-17.5)
[2020-06-08] MEDS ORDERED: NON FORMULARY ITEM (Lisinopril/Hydrochlorothiazide (Lisinopril-Hctz 20-12.5 Mg Tab) 1 TAB) PO SCH (07:00)
[2020-06-08 07:23] LABS: PROTHROMBIN TIME PATIENT 13.6 SEC (11.7-14.0)
[2020-06-08] MEDS: ACETAMINOPHEN 500 MG TABLET PO SCH ×3 (08:42→20:52)
[2020-06-08] MEDS: SENNOSIDES/DOCUSATE 8.6/50MG TABLET. PO SCH (08:42)
[2020-06-08] MEDS: hydroCHLOROthiazide 12.5 MG CAPSULE PO SCH (08:43)
[2020-06-08] MEDS: LISINOPRIL 20 MG TABLET PO SCH (08:43)
[2020-06-08] MEDS: FERROUS SULFATE 325 MG TABLET. PO SCH ×2 (08:44→16:50)
[2020-06-08] MEDS: MULTIVITAMIN with MINERAL TABLET. PO SCH (08:44)
[2020-06-08] MEDS ORDERED: MELOXICAM 7.5 MG TABLET PO SCH (09:00)
--- NOTE | 2020-06-08 10:29 | NUR ---
Pharmacy Warfarin Dosing Note S: Pharmacy consulted to assist with anticoagulation therapy started 06/07/20 O: OSEIROMAN is a 64 year old M with [facility] LABS: Last INR: 1.1 Last HGB: 13.3 Last HCT: 40.0 Last dose of 7.5 mg given on 06/07/20 at 1948 Ongoing Drug Interactions: MELOXICAM A:INR of 1.1 is below desired range. Target range for this patient is: 1.6 - 2.5 P: Warfarin dose: 5 mg Today at 1600 Bridge Therapy: None Next INR due 06/09/20 AM Pharmacy anticoagulation service will continue to follow. WALI TOMPKINS R[facility], 06/08/20 1989
[2020-06-08] MEDS ORDERED: ONDANSETRON PF 4 MG/2 ML VIAL. IVP PRN (12:00)
[2020-06-08] MEDS ORDERED: ONDANSETRON ODT 4 MG TAB.RAPDIS. PO PRN (12:00)
--- NOTE | 2020-06-08 15:53 | NUR ---
Juan David is doing well. Cam dressing removed related to saturation large amount of serosanguineous drainage. IAC removed (blue tip intact) cleansed with chlor prep than new CAM applied.
[2020-06-08] MEDS ORDERED: BISACODYL 10 MG SUPP.RECT. PR PRN (16:00)
[2020-06-08] MEDS ORDERED: WARFARIN 5 MG TABLET. PO ONE (16:00)
[2020-06-08] MEDS: IV NORMAL SALINE 1000ML BAG 1,000 ML IV SCH (16:26)
[2020-06-08 18:39] VITALS: BP 116/58
--- NOTE | 2020-06-08 19:04 | PDOC ---
PROGRESS NOTES Subjective Subjective Problems overnight: Tolu is overall getting around well following his hip revision, taking tramadol for pain Objective Vital Signs Vital Signs Date Time Temp Pulse Resp B/P (MAP) Pulse Ox O2 Delivery O2 Flow Rate FiO2 06/08/20 18:39 98.9 75 20 116/58 (77) 95 Room Air 98.9 06/07/20 21:00 3.0 Physical Exam Dressing had soaked through and was changed today, leg lengths appear equal distal neurovascular status intact he has excellent range of motion Labs Laboratory Tests Test 06/07/20 12:15 06/07/20 13:50 06/08/20 06:11 Prothrombin Time 12.5 SEC (11.7-14.0) 13.6 SEC (11.7-14.0) Prothromb Time International Ratio 1.0 (0.8-1.1) 1.1 (0.8-1.1) Activated Partial Thromboplast Time 30 SEC (24-38) Body Fluid Source Synovial Body Fluid Color Red Body Fluid Clarity Turbid Body Fluid Nucleated Cells 2125 /cmm (Not Established) Body Fluid Mononuclear WBCs (%) 95 % Body Fluid Polymorphonuclear Cells 5 % Body Fluid Total RBCs Counted 30794 /cmm (Not Hemoglobin 13.3 g/dL (13.0-17.5) Hematocrit 40.0 % (39.0-53.0) Mean Corpuscular Hemoglobin Concent 33 g/dL (31-37) Laboratory Tests Test 06/08/20 06:11 Hemoglobin 13.3 g/dL (13.0-17.5) Hematocrit 40.0 % (39.0-53.0) Mean Corpuscular Hemoglobin Concent 33 g/dL (31-37) Prothrombin Time 13.6 SEC (11.7-14.0) Prothromb Time International Ratio 1.1 (0.8-1.1) Assessment Assessment POD#1 revision left hip arthroplasty Plan Plan of Care Dressing change today, pain controlled and expect discharge tomorrow after physical therapy Justicifation of Admission Dx: Justifications for Admission: Justification of Admission Dx: N/A NERY MONTEIRO MD Jun 08, 2020 19:04
[2020-06-08 19:43] VITALS: BP 116/58
--- NOTE | 2020-06-08 20:27 | RAD ---
PELVIS History: Reason: Postop AP pelvis view from 06/07/2020 inadequate, need to visualize both hip / Spl. Instructions: / History: Technique: AP view the pelvis. Comparison: May 30, 2020 Findings: Recent left total hip arthroplasty. Expected postoperative finding subcutaneous and intra-articular gas. Surgical drain noted. Normal alignment. No fracture. Mild right hip DJD. Impression: 1. Left total hip arthroplasty. No immediate hardware complications. Electronically signed by: Avelino Levine DO (06/08/2020 8:25 PM) JORDY
[2020-06-08] MEDS: SIMVASTATIN 40 MG TABLET. PO SCH (20:51)
[2020-06-09] MEDS: oxyCODONE IR 5 MG TABLET PO PRN ×2 (00:22→05:23)
[2020-06-09] MEDS: ACETAMINOPHEN 500 MG TABLET PO SCH ×3 (03:00→14:10)
[2020-06-09] MEDS: GABAPENTIN 100 MG CAPSULE. PO SCH ×2 (05:23→13:19)
[2020-06-09] MEDS: traMADol 50 MG TABLET PO SCH ×2 (05:23→12:00)
[2020-06-09 05:48] VITALS: BP 130/71
[2020-06-09 05:49] LABS: HEMOGLOBIN 12.6 g/dL (13.0-17.5)
[2020-06-09 05:57] LABS: PROTHROMBIN TIME PATIENT 15.5 SEC (11.7-14.0)
[2020-06-09] MEDS: hydroCHLOROthiazide 12.5 MG CAPSULE PO SCH (08:06)
[2020-06-09 08:07] VITALS: BP 130/71
[2020-06-09] MEDS: MULTIVITAMIN with MINERAL TABLET. PO SCH (08:07)
[2020-06-09] MEDS: FERROUS SULFATE 325 MG TABLET. PO SCH (08:07)
[2020-06-09] MEDS: LISINOPRIL 20 MG TABLET PO SCH (08:07)
[2020-06-09] MEDS: SENNOSIDES/DOCUSATE 8.6/50MG TABLET. PO SCH (08:07)
[2020-06-09] MEDS: MELOXICAM 7.5 MG TABLET PO SCH (08:09)
--- NOTE | 2020-06-09 10:54 | NUR ---
Pharmacy Warfarin Dosing Note S:Pharmacy consulted to assist with anticoagulation therapy started 06/07/20 with target INR: 1.6 - 2.5 O:ROMAN FRANZ is a 64 year old M with [facility] LABS: Last INR: 1.3 Last HGB: 12.6 Last HCT: 37 Last PLT: - Last dose of 5 mg given on 06/08/20 at 1948 Previous Regimen: Vitamin K given: Drug Interaction Changes: Same Interacting Drug Ongoing Drug Interactions: MELOXICAM A:INR of 1.3 is below desired range. Target range for this patient is: 1.6 - 2.5 P: Warfarin dose: 5 mg Today at 1600 Bridge Therapy: None Next INR due Saturday at physical therapy. Pharmacy anticoagulation service will continue to follow. DEVORAH CRAFT [facility], 06/09/20 [id number]
[2020-06-09] MEDS ORDERED: TRAM50TA PO (12:15)
--- NOTE | 2020-06-09 12:20 | DISCH ---
DISCHARGE INSTRUCTIONS Condition on Discharge Condition on Discharge: Stable Activity After Discharge Activity Instructions for Disc: Activity as tolerated, Progressive ambulation Bathing Instructions: Shower-keep dressing dry, No Tub Bath until see Lifting Instructions after Dis: No heavy lifting, No pulling or pushing Exercise Instruction after Dis: Walk 30 min, 3 x per week, Progress as tolerated Driving Instructions after Dis: Do not drive Weight Bearing Status after Di: As tolerated Diet after Discharge Diet after Discharge: Regular Wound Incision Care Wound/Incision Care: Ice to area for comfort, Do not change dressing, No wound care needed Other wound/incision instructi: DO NOT change CAM dressing. It remains in place till your appointment Community/Resources/Services Services at Discharge: Outpatient Therapy Contacting the after DC Call your doctor for: Concerns you may have Follow-Up Follow Up With: Dr Soni on June 20 at 9:45am Treatment/Equipment after DC Adaptive Equipment Issued: None Warfarin Follow-Up Warfarin Follow UP: Dosing and testing per [place] [facility] anticoagulation clinic NERY SONI MD Jun 09, 2020 12:20
[2020-06-09] MEDS ORDERED: WARF-31 PO (13:09)
[2020-06-09] MEDS ORDERED: WARFARIN 5 MG TABLET. PO ONE (14:00)
--- NOTE | 2020-06-09 14:19 | NUR ---
Patient left the building around 1415 with his . Discharge education completed by this nurse, therapy, pharmacy. and the doctor prior to discharge. Coumadin given prior to discharge. Patient refused pain medication. CAM dressing CDI with green light flashing. IV discontinued prior to this nurses shift. Script given for tramadol. Outpatient therapy set up by the outpatient case manager. No concerns noted at discharge.
--- NOTE | 2020-06-10 15:27 | DS ---
DATE OF DISCHARGE: 06/09/2020 ORTHOPEDIC DISCHARGE SUMMARY PRINCIPAL DIAGNOSIS: Left hip joint instability. PROCEDURE: Revision of left hip to a dual mobility acetabular construct. DISPOSITION: Home with outpatient physical therapy. DISCHARGE MEDICATIONS: Include tramadol 50 mg p.o. every 4 hours p.r.n. pain, Coumadin as directed by Anticoagulation Clinic, resume preoperative medications. FOLLOWUP: Dr. Soni in 2 weeks postoperatively. ACTIVITY: Weightbearing as tolerated; no hip precautions necessary. BRIEF DESCRIPTION OF HOSPITAL COURSE: The patient underwent an uneventful conversion of his left hip to an acetabular revision with a dual mobility construct for stability. Postoperatively, he was weightbearing as tolerated and medically stable. He progressed through his physical therapy well and was discharged home in stable condition again with outpatient physical therapy; disposition planned. NERY SONI MD DR: SAMIRA/keya JOB#: [id number] / [id number]
== END 2020-06-09 14:20 | disposition home or self-care (01) | DRG 468 ==
LOC: OPSVCIP 11:28 → 4 SOUTHEST 17:30
PROVIDERS: ADMIT Orthopaedic Surgery; ATTEND Orthopaedic Surgery
PROC: 0SPE0JZ Removal of Synthetic Substitute from Left Hip Joint, Acetabular Surface, Open Approach (ICD-10-PCS; 2020-06-07)
PROC: 0SRE01A Replacement of Left Hip Joint, Acetabular Surface with Metal Synthetic Substitute, Uncemented, Open Approach (ICD-10-PCS; principal; 2020-06-07 13:00)
DX: T84.021A Dislocation of internal left hip prosthesis, initial encounter (principal); Z96.642 Presence of left artificial hip joint; Y83.8 Other surgical procedures as the cause of abnormal reaction of the patient, or of later complication, without mention of misadventure at the time of the procedure; Y92.89 Other specified places as the place of occurrence of the external cause; Z88.0 Allergy status to penicillin; I10 Essential (primary) hypertension; E78.5 Hyperlipidemia, unspecified
CPT/HCPCS: 36415; 72170; 73502; 85014; 85018; 85610; 85730; 86850; 86900; 86901; 87071; 87075; 89050; A7015; C1713; C1776; J0171; J0690; J1100; J1170; J1885; J2270; J2405; J2704; J2710; J2795; J3010; J3490; J7030; J7120; 97116-GP; 97150-GP; 97530-GO; 97530-GP; 97535-GO; G0378